=== PATIENT | male | born 1995 | race Caucasian/White ===

== ENCOUNTER 2018-09-23 15:20 | Emergency (ER) | payer OTHER ==
[2018-09-23 16:09] VITALS: BP 111/74
--- NOTE | 2018-09-23 16:13 | UC ---
Ear Complaint HPI - HPI Summary HPI Summary: 23 yo male presents with RIGHT ear pain for the last week. He tells me that he is an avid wrestler and suffers from b/l cauliflower ear, but over the last week has had right ear pain and drainage at times. Denies fever, chills, headache, dizziness - History of Current Complaint Chief Complaint: UCEar Stated Complaint: EAR ACHE Time Seen by Provider: 09/23/18 16:13 Hx Obtained From: Patient Onset/Duration: Gradual Onset Severity Initially: Moderate Severity Currently: Severe Pain Intensity: 8 Pain Scale Used: 0-10 Numeric - Allergies/Home Medications Allergies/Adverse Reactions: Allergies Allergy/AdvReac Type Severity Reaction Status Date / Time amoxicillin Allergy Unknown Verified 09/23/18 16:09 Reaction Details PMH/Surg Hx/FS Hx/Imm Hx - Additional Past Medical History Additional PMH: None - Surgical History Surgical History: None - Family History Known Family History: Positive: None - Social History Occupation: Student Lives: Dormitory/Roommates Alcohol Use: Weekly Substance Use Type: None Smoking Status (MU): Never Smoked Tobacco Review of Systems Constitutional: Negative Skin: Negative Eyes: Negative ENT: Ear Ache Respiratory: Negative Cardiovascular: Negative Gastrointestinal: Negative Neurovascular: Negative Neurological: Negative Psychological: Negative All Other Systems Reviewed And Are Negative: Yes Physical Exam - Summary Physical Exam Summary: GENERAL: NAD. WDWN. No pain distress. SKIN: No rashes, sores, lesions, or open wounds. HEENT: Head: AT/NC Eyes: EOM intact. Conjunctiva clear without inflammation or discharge. Ears: Hearing grossly normal. LEFT ear canal with moderate white/ yellow purulent drainage and canal edema. TM intact without erythema or bulging. No mastoid tenderness Nose: Nasal mucosa pink and moist. NTTP maxillary and frontal sinus. NECK: Supple. Nontender. No lymphadenopathy. CHEST: CTAB. No r/r/w. No accessory muscle use. Breathing comfortably and in no distress. CV: RRR. Without m/r/g. Pulses intact. NEURO: Alert. PSYCH: Age appropriate behavior. Triage Information Reviewed: Yes Vital Signs: Initial Vital Signs Temp 98.8 F 09/23/18 16:05 Pulse 62 09/23/18 16:05 Resp 16 09/23/18 16:05 BP 111/74 11/06/18 16:05 Pulse Ox 100 09/23/18 16:05 Vital Signs Reviewed: Yes Ear Complaint Course/Dx - Course Course Of Treatment: Right otitis externa - Differential Dx/Diagnosis Provider Diagnoses: Right otitis externa Discharge - Sign-Out/Discharge Documenting (check all that apply): Patient Departure All imaging exams completed and their final reports reviewed: No Studies - Discharge Plan Condition: Stable Disposition: HOME Prescriptions: Ofloxacin 0.3% (Ear Drop)* [Floxin 0.3% OTIC.LAWANDA (Ear Drop)] 5 drop RIGHT EAR BID #1 btl Patient Education Materials: Otitis Externa (ED) Referrals: No Primary Care Phys,NOPCP [Primary Care Provider] - Additional Instructions: If you develop a fever, shortness of breath, chest pain, new or worsening symptoms - please call your PCP or go to the ED. - Billing Disposition and Condition Condition: STABLE Disposition: Home - Attestation Statements Provider Attestation: Per institutional requirements, I have reviewed the chart, however, I was not consulted specifically or made aware of this patient by the midlevel provider. I did not personally evaluate, interact with , or disposition this patient.
== END 2018-09-23 16:26 | disposition home or self-care (01) ==
LOC: UCEAST 15:20
DX: H60.91 Unspecified otitis externa, right ear (principal); Z88.0 Allergy status to penicillin
CPT/HCPCS: 99202; G0463